=== PATIENT | female | born 1980 | race Caucasian/White ===

== ENCOUNTER 2020-07-25 19:50 | Observation (INO) | payer MEDICAID, SELFPAY ==
[~2020-07-25] VITALS: Ht 165.1 cm; Wt 85.7 kg
== END 2020-07-25 23:00 | disposition home or self-care (01) ==
LOC: SPU 19:50
PROVIDERS: ADMIT Obstetrics & Gynecology; ATTEND Obstetrics & Gynecology
DX: O42.92 Full-term premature rupture of membranes, unspecified as to length of time between rupture and onset of labor (principal); O62.9 Abnormality of forces of labor, unspecified; Z3A.39 39 weeks gestation of pregnancy
CPT/HCPCS: 76815; G0378; 81002-TC

== ENCOUNTER 2020-07-26 10:50 | Inpatient (IN) | payer MEDICAID ==
[~2020-07-26] VITALS: Ht 165.1 cm; Wt 85.3 kg
[2020-07-26] MEDS ORDERED: TERBUTALINE SULFATE 1 MG/ML VIAL SUBCUT ONE (11:45)
[2020-07-26] MEDS: LR 1,000 ML IV SCH ×2 (11:45→15:56)
[2020-07-26] MEDS ORDERED: fentaNYL CITRATE/PF 100 MCG/2 ML AMP ONE ×2 (12:12→21:13)
[2020-07-26] MEDS ORDERED: ROPIVACAINE HCL/PF 0.2% 200 ML ONE ×2 (12:13→21:13)
[2020-07-26 12:25] LABS: BASOPHILS % (AUTO) 0.1 % (0.0-2.0); EOSINOPHILS % (AUTO) 0.1 % (0.0-4.0); HEMATOCRIT 31.2 % (36-48); HEMOGLOBIN 10.5 g/dL (12.0-16.0); LYMPHOCYTES # (AUTO) 0.8 K/uL (1.0-5.5); LYMPHOCYTES % (AUTO) 8.3 % (20.5-51.5); MEAN CORPUSCULAR HEMOGLOBIN 30 pg (27-31); MEAN CORPUSCULAR HGB CONC 34 % (32-36); MEAN CORPUSCULAR VOLUME 88 fL (79.0-98.0); MONOCYTES # (AUTO) 0.5 K/uL (0.0-1.0); MONOCYTES % (AUTO) 5.5 % (1.7-9.3); NEUTROPHILS # (AUTO) 8.6 K/uL (1.8-7.7); PLATELET COUNT (AUTO) 175 K/uL (130-430); RED BLOOD CELL COUNT(AUTO) 3.54 MIL/uL (4.2-6.2); RED CELL DISTRIBUTION WIDTH 14.8 % (9.0-15.0)
[2020-07-26] MEDS ORDERED: LR 1,000 ML IV ONE (13:30)
[2020-07-26] MEDS ORDERED: OXYTOCIN/0.9 % SODIUM CHLORIDE 1,000 ML IV SCH (13:30)
[2020-07-26] MEDS ORDERED: ONDANSETRON HCL 4 MG/2 ML VIAL IVP PRN (14:45)
[2020-07-26] MEDS ORDERED: FENT2mCg/mL-ROPIVA0.2%/NS EPID 200 ML EP SCH (14:45)
[2020-07-26] MEDS ORDERED: NALOXONE HCL 0.4 MG/ML AMP (NARCAN) IVP PRN (14:45)
[2020-07-26] MEDS ORDERED: DIPHENHYDRAMINE INJ 50 MG/ML VIAL IVP PRN (14:45)
[2020-07-26] MEDS: NALBUPHINE HCL 10 MG/ML AMP IVP PRN (21:35)
[2020-07-26 21:43] VITALS: BP_SYST 102
[2020-07-27] MEDS: NALBUPHINE HCL 10 MG/ML AMP IVP PRN (00:29)
[2020-07-27] MEDS ORDERED: TEMAZEPAM 15 MG CAPSULE PO PRN (03:00)
[2020-07-27] MEDS ORDERED: DIPH-TET-PERTUS Vaccine 0.5 ML VIAL (ADACEL) I.M. PRN (03:00)
[2020-07-27] MEDS ORDERED: OXYTOCIN/0.9 % SODIUM CHLORIDE 1,000 ML IV ONE (03:00)
[2020-07-27] MEDS ORDERED: SENNOSIDES/DOCUSATE SODIUM 1 TAB TABLET(SENOKOT-S) PO PRN (03:00)
[2020-07-27] MEDS ORDERED: RHO(D) IMMUNE GLOBULIN/MALTOSE 1500 UNITS/1.3 ML (WINHRO) IM PRN (03:00)
[2020-07-27] MEDS ORDERED: ANUSOL 1 EA SUPP.RECT (PREPARATION H) RC PRN (03:00)
[2020-07-27] MEDS ORDERED: HYDROCORTISONE 0.5% CREAM 28.4 GM CREAM.GM. TP PRN (03:00)
[2020-07-27] MEDS ORDERED: DERMOPLAST SPRAY TP PRN (03:00)
[2020-07-27] MEDS ORDERED: LANOLIN 7 GM OINT. TP PRN (03:00)
[2020-07-27] MEDS ORDERED: OXYTOCIN/0.9 % SODIUM CHLORIDE 1,000 ML IV SCH (03:00)
[2020-07-27] MEDS ORDERED: MEASLES,MUMPS&RUBELLA VACC/PF 12500 UNIT/0.5 ML VIAL SUBQ PRN (03:00)
[2020-07-27] MEDS ORDERED: WITCH HAZEL LEAF 1 MED.PAD MED.PAD TP PRN (03:00)
[2020-07-27] MEDS ORDERED: NALOXONE HCL 0.4 MG/ML AMP (NARCAN) IVP PRN (03:15)
[2020-07-27] MEDS ORDERED: HYDROcodone/ACETAMIN 5-325 MG TAB (NORCO/ VICODIN) PO PRN (03:15)
[2020-07-27] MEDS ORDERED: OXYCODONE/ACETAMINOPHEN 5-325 TABLET PO PRN ×2 (03:15)
[2020-07-27] MEDS: IBUPROFEN 600 MG TABLET PO SCH ×4 (05:19→18:00)
[2020-07-28] MEDS: DOCUSATE SODIUM 100 MG CAPSULE PO PRN ×2 (00:02→05:58)
[2020-07-28] MEDS: IBUPROFEN 600 MG TABLET PO SCH (05:55)
[2020-07-28] MEDS ORDERED: LIGHT MINERAL OIL 10 ML VIAL MC ONE (08:20)
[2020-07-28 08:38] LABS: HEMATOCRIT 30.3 % (36-48); HEMOGLOBIN 10.1 g/dL (12.0-16.0)
== END 2020-07-28 16:00 | disposition home or self-care (01) | DRG 566 ==
LOC: SPU 10:50 → OBSVTOIN 10:50
PROVIDERS: ADMIT Obstetrics & Gynecology; ATTEND Obstetrics & Gynecology
DX: O62.9 Abnormality of forces of labor, unspecified (principal); Z20.822 Contact with and (suspected) exposure to COVID-19; Z3A.39 39 weeks gestation of pregnancy
CPT/HCPCS: 36415; 85018-TC; 85025; 86592; 86886; 86900; 86901; J2300; J2590; J3010